=== PATIENT | female | born 1970 | race Two or more races ===

== ENCOUNTER 2025-03-17 09:46 | Day surgery (SDC) | payer OTHER ==
[2025-03-15 09:22] LABS: BASO % 1.4 % (0.1-1.2); EOS # 0.77 (0.04-0.54); EOS % 13.3 % (0.7-7.0); HEMATOCRIT 43.7 % (34.1-44.9); HEMOGLOBIN 14.4 g/dL (11.2-15.7); LYMPH # 2.12 (1.18-3.74); LYMPH % 36.6 % (19.3-53.1); MEAN CORPUSCULAR HEMOGLOBIN 25.9 pg (25.6-32.2); MONO # 0.41 (0.24-0.82); MONO % 7.1 % (4.7-12.5); NEUT % 41.4 % (34.0-71.1); PLATELET COUNT 242 K/uL (163-369); RED BLOOD COUNT 5.55 M/uL (3.93-5.22); RED CELL DISTRIBUTION WIDTH 18.2 % (11.6-14.4)
[2025-03-15 09:29] VITALS: BP 108/72
[2025-03-15 09:33] LABS: URINE APPEARANCE Clear; URINE BILIRRUBIN Negative (NEGATIVE); URINE BLOOD Negative; URINE COLOR Yellow; URINE GLUCOSE Negative (NEGATIVE); URINE KETONE Negative (NEGATIVE); URINE LEUKOCYTE Small; URINE NITRATE Negative; URINE PROTEIN Negative (NEGATIVE); URINE UROBILINOGEN 0.2 E.U./dl
[2025-03-15 09:37] LABS: URINE BACTERIA 30.5 uL (0.0-1933); URINE EPITHELIAL CELLS 6.1 uL (0.0-38.8); URINE WBC 6.3 uL (0.0-23.2)
[2025-03-15 09:40] LABS: URINE CAST 0.14 uL (0.0-1.40); URINE RBC 1.3 uL (0.0-20.8)
[2025-03-15 09:43] LABS: INR 0.99; PARTIAL THROMBOPLASTIN TIME 29.1 SECONDS (22.0-34.0); PROTHROMBIN TIME 10.8 SECONDS (9.0-11.5)
[2025-03-15 10:24] LABS: BILIRUBIN TOTAL 0.65 mg/dL (0.3-1.2); CALCIUM 9.4 mg/dL (8.5-10.1); CREATININE SERUM 0.77 mg/dL (0.55-1.02); GFR 78.72; GLOBULINA 3.7 G/DL (2.4-3.5); POTASSIUM 4.24 mEq/L (3.5-5.1); TOTAL PROTEIN 7.7 gm/dL (6.4-8.2)
[~2025-03-17] VITALS: Ht 157.5 cm; Wt 86.2 kg
[~2025-03-17 09:46] MED LIST: ZYRTEC10 M3 PO
[2025-03-17] MEDS ORDERED: CHLORHEXIDINE GLUCONATE 120 ML BOTTLE TOP ONE (13:12)
[2025-03-17] MEDS ORDERED: PROMETHAZINE HCL 50 MG/ML AMPUL IM ONE (14:45)
[2025-03-17] MEDS ORDERED: MORPHINE SULFATE 4 MG/ML VIAL IV PRN (14:45)
== END 2025-03-17 17:30 | disposition home or self-care (01) ==
LOC: CIR.AMB 09:46
PROVIDERS: ATTEND Obstetrics & Gynecology
DX: N84.0 Polyp of corpus uteri (principal); Z88.0 Allergy status to penicillin